=== PATIENT | male | born 1970 | race Caucasian/White ===

== ENCOUNTER 2021-09-22 08:38 | Outpatient (REF) | payer OTHER, SELFPAY ==
[2021-09-22 08:55] LABS: MANUAL DIFF FLAG NO
[2021-09-22 09:52] LABS: Basophils Percent Auto 0.8 % (0-2); Eosinophils Absolute Auto 0.1 X10*3/uL (0.0-0.4); Eosinophils Percent Auto 2.7 % (0-4); Hematocrit 48.5 % (42.0-52.0); Hemoglobin 15.3 g/dl (14.0-18.0); Imm Gran Abs Auto 0.01 X10*3/uL (0.00-0.03); Imm Gran Pct Auto 0.2 % (0.0-0.4); Lymphocytes Absolute Auto 1.8 X10*3/uL (1.2-4.9); Lymphocytes Percent Auto 37.1 % (20-40); Mean Corpuscular HGB Conc 31.5 g/dl (31.0-36.0); Mean Corpuscular Hemoglobin 24.7 pg (27.0-33.0); Mean Corpuscular Volume 78.2 fL (80.0-98.0); Mean Platelet Volume 10.8 fL (9.4-12.4); Monocytes Absolute Auto 0.4 X10*3/uL (0.1-1.2); Monocytes Percent Auto 9.1 % (2-11); Neutrophils Absolute Auto 2.4 x10*3/uL (2.0-8.3); Neutrophils Percent Auto 50.1 % (45-73); Platelet Count 235 X10*3/uL (160-400); Red Cell Distribution Width 19.3 % (11.0-16.0); White Blood Count 4.8 X10*3/uL (4.8-10.8)
[2021-09-22 10:06] LABS: Alanine Aminotransferase 36 U/L (0-40); Albumin Level 4.1 g/dL (3.5-5.0); Alkaline Phosphatase 97 U/L (39-117); Anion Gap 12 (12-20); Aspartate Amino Transferase 27 U/L (5-37); Bilirubin Total 0.5 mg/dL (0.0-1.0); Blood Urea Nitrogen 19 mg/dL (9-16); Calcium 9.6 mg/dL (8.4-10.2); Carbon Dioxide 26 mmol/L (22-29); Chloride 105 mmol/L (96-108); Cholesterol 270 mg/dL; Estimated Glomerular Filt Rate > 60; Glucose Fasting 110 mg/dL (60-99); HDL Cholesterol 44 mg/dL; LDL Cholesterol Calculated 182 mg/dl; Potassium 4.4 mmol/L (3.3-5.1); Sodium 139 mmol/L (135-145); Total Protein 7.3 g/dL (6.5-8.0); Triglycerides 222 mg/dL
[2021-09-22 10:29] LABS: Thyroid Stimulating Hormone 1.13 uIU/mL (0.32-4.0)
[2021-09-27 16:05] LABS: Testosterone, Free 85.2 pg/mL (35.0-155.0); Testosterone, Total 300 ng/dL (250-1100)
== END 2021-09-22 08:39 | disposition home or self-care (01) ==
LOC: HO.LAB 08:38
PROVIDERS: PCP Internal Medicine; Visit Provider Internal Medicine
DX: E66.9 Obesity, unspecified (principal); Z68.34 Body mass index [BMI] 34.0-34.9, adult; E34.9 Endocrine disorder, unspecified
CPT/HCPCS: 36415; 80053; 80061; 84402; 84403; 84443; 85025

== ENCOUNTER 2021-12-23 09:00 | Outpatient (REF) | payer OTHER, SELFPAY ==
--- NOTE | ~2021-12-23 | XR_ITS ---
EXAMINATION: XR SHOULDER, RIGHT XR ELBOW, RIGHT CLINICAL INFORMATION: Right shoulder pain. Right elbow pain. COMPARISON: None TECHNIQUE: 4 views of the right shoulder. 3 views of the right elbow. FINDINGS: RIGHT SHOULDER: Mild glenohumeral osteoarthritis with inferior osteophytes. Moderate acromioclavicular osteoarthritis. Normal alignment with no fracture. RIGHT ELBOW: Normal alignment with no fracture. No joint effusion. There is a small osteophyte of the radial head anterolaterally. Posterior olecranon enthesophyte. XR/XR shoulder RT min 2V IMPRESSION: Right shoulder: No fracture. Moderate acromioclavicular and mild glenohumeral osteoarthritis. Right elbow: Mild degenerative changes. Prominent enthesophyte of the olecranon at the triceps tendon insertion. No acute abnormality.
--- NOTE | ~2021-12-23 | XR_ITS ---
EXAMINATION: XR SHOULDER, RIGHT XR ELBOW, RIGHT CLINICAL INFORMATION: Right shoulder pain. Right elbow pain. COMPARISON: None TECHNIQUE: 4 views of the right shoulder. 3 views of the right elbow. FINDINGS: RIGHT SHOULDER: Mild glenohumeral osteoarthritis with inferior osteophytes. Moderate acromioclavicular osteoarthritis. Normal alignment with no fracture. RIGHT ELBOW: Normal alignment with no fracture. No joint effusion. There is a small osteophyte of the radial head anterolaterally. Posterior olecranon enthesophyte. XR/XR elbow RT min 3V IMPRESSION: Right shoulder: No fracture. Moderate acromioclavicular and mild glenohumeral osteoarthritis. Right elbow: Mild degenerative changes. Prominent enthesophyte of the olecranon at the triceps tendon insertion. No acute abnormality.
== END 2021-12-23 09:01 | disposition home or self-care (01) ==
LOC: HO.XRAY 09:00
PROVIDERS: PCP Internal Medicine; Visit Provider Nurse Practitioner Family
DX: M25.511 Pain in right shoulder (principal); M25.521 Pain in right elbow
CPT/HCPCS: 73030; 73080

== ENCOUNTER → 2022-01-21 10:49 | Outpatient (BNVA) | payer OTHER, SELFPAY | PROVIDERS: PCP Internal Medicine; Visit Provider Orthopaedic Surgery | DX: M67.911 Unspecified disorder of synovium and tendon, right shoulder (principal) | CPT/HCPCS: 99202 ==

== ENCOUNTER 2022-02-02 07:23 | Outpatient (REF) | payer OTHER, SELFPAY ==
--- NOTE | ~2022-02-02 | MR_ITS ---
EXAMINATION: MR SHOULDER WITHOUT CONTRAST, RIGHT CLINICAL INFORMATION: Right shoulder pain. COMPARISON: None TECHNIQUE: MRI of the shoulder without contrast was performed on a high-field scanner. FINDINGS: ROTATOR CUFF: Supraspinatus: There is a full-thickness insertional tear involving the anterior supraspinatus tendon. There is tendon retraction resulting in a tendon defect measuring 15 mm transverse and 14 mm AP. There is some additional heterogeneity of the remaining portion of tendon compatible tendinosis and perhaps additional small scattered areas of partial tearing but no additional measurable defect. Infraspinatus: Some cystic change along the myotendinous junction anteriorly likely sequela of some minimal interstitial partial tearing but no measurable defect. Muscle is normal. Teres Minor: There is diffuse severe atrophy and fatty infiltration of the superior half of the muscle. Tendon intact. Subscapularis: Abnormal signal and some irregularity of the distal 2 cm of the tendon in the superior half of the tendon. This likely reflects a high-grade partial tearing or irregular full-thickness tear. Favor irregular full-thickness tear. There is no atrophy of fatty infiltration of the muscle. BICEPS: There is medial subluxation of the biceps as it extends into the bicipital groove distally. It passes over the lesser tuberosity as it extends distally. This may be in part related to the aforementioned subscapularis tear and perhaps an accompanying injury to the woodrow. CORACOACROMIAL ARCH: The undersurface of the acromion is curved with no subacromial spur. There is severe hypertrophic osteoarthritis of acromioclavicular joint with associated subchondral cystic change and marginal osteophytes. BURSA: Subacromial subdeltoid bursa trace fluid. LABRUM/CAPSULE: Normal. GLENOHUMERAL JOINT/MARROW: Normal. MR/MR shoulder RT wo con IMPRESSION: Small full-thickness tear involving the anterior supraspinatus tendon. Insertional tear of the subscapularis tendon likely high-grade partial-thickness versus irregular full-thickness. Medial subluxation of the biceps likely in part related to the subscapularis tear and perhaps an accompanying biceps woodrow injury. Severe osteoarthritis of the acromioclavicular joint.
== END 2022-02-02 07:24 | disposition home or self-care (01) ==
LOC: HO.MRI 07:23
PROVIDERS: Visit Provider Orthopaedic Surgery
DX: M67.911 Unspecified disorder of synovium and tendon, right shoulder (principal)
CPT/HCPCS: 73221

== ENCOUNTER → 2022-02-14 08:24 | Outpatient (BNVA) | payer OTHER, SELFPAY | PROVIDERS: PCP Internal Medicine; Visit Provider Orthopaedic Surgery | DX: M75.101 Unspecified rotator cuff tear or rupture of right shoulder, not specified as traumatic (principal) | CPT/HCPCS: 99212 ==

== ENCOUNTER 2022-03-02 09:06 | Day surgery (SDC) | payer OTHER, SELFPAY ==
[2022-02-24 12:12] VITALS: BMI 35.1
[2022-03-02] VITALS (9 sets, daily range): BP systolic 100–162; BP diastolic 52–103; PULSE 62–80; RESP 16–20; TEMP 36.4–36.5; O2SAT 94–97; BMI 34.3
--- NOTE | 2022-03-02 10:21 | HO.ANESPROP2 ---
[facility] Active Problems Active Problems: All Active Problems (Updated 03/02/22 @ 09:22 by Anna Briscoe RN) Right elbow pain (Acute) Right shoulder pain (Acute) Dysfunction of right rotator cuff (Acute) Right rotator cuff tear (Acute) Erectile dysfunction (Acute) Testosterone deficiency (Acute) Colon polyps (Acute) EDISON (generalized anxiety disorder) (Acute) Mild recurrent major depression (Acute) Class 1 obesity with body mass index (BMI) of 34.0 to 34.9 in adult (Acute) Past Medical History Medical History (Updated 03/02/22 @ 09:22 by Anna Briscoe RN) Class 1 obesity with body mass index (BMI) of 34.0 to 34.9 in adult Colon polyps Erectile dysfunction EDISON (generalized anxiety disorder) Mild recurrent major depression Obstructive sleep apnea Testosterone deficiency Family History Family History Mother Alzheimer disease Father No problems noted. Brother Liver cancer Substance use disorder Family history of problems with anesthesia: No Surgical History Surgical History History of back surgery History of elbow surgery History of Problems with Anesthesia: No Social History Social History Housing: House Alcohol intake: former Patient Tobacco Use Status: Never used Tobacco e-Cigarette/Vaping Use: Never Used Second Hand Smoke Exposure: No Use of substances other than those prescribed or required for medical reasons: No Are you DNR?: No Advance Directives: No Advance Directives Information Provided: Yes service: No Current occupational status: employed 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 Current occupational exposures/hazards: No Cognitive needs: No Hearing needs: No Vision needs: No Meds Allergies Allergy/AdvReac Type Severity Reaction Status Date / Time No Known Allergies Allergy Verified 12/23/21 08:44 Exam Exam Date and Time: March 02, 2022 1021 Height,Weight and Vital Signs: Height 5 ft 6 in Weight 96.615 kg Last Vital Signs Temp 97.7 F 03/02/22 09:33 Pulse 80 03/02/22 09:33 Resp 18 03/02/22 09:33 BP 162/103 H 03/02/22 09:33 Pulse Ox 97 03/02/22 09:33 O2 Del Method 03/02/22 09:33 Airway Mallampati Class: III TM Dist: >3cm Neck ROM: Full Assessment and Plan Assessment Anesthesia Assessment: Anesthesia Plan Discussed and Chart Reviewed Final Anesthetic Review Family History of Problems with Anesthesia: No History of Problems with Anesthesia: No NPO: Yes ASA Class: II Final Preanesthetic Review: No Changes in Pt Med Stat, Meds/Allgs Chart Reviewed, Consent Obtained/Reviewed and Anes Risks/Benef Reviewed Patient Risk: Intermediate Procedure Risk: Intermediate Anesthetic Plan Anesthetic Plan: GA and Regional Block Disposition: Standard PACU
[2022-03-02] MEDS: Lactated Ringers 1,000 ML 50 ML IVCONT (11:39)
--- NOTE | 2022-03-02 20:10 | PM.OP ---
Brief Operative Note Date of Service: 03/02/22 Pre-op diagnosis: right rtc tear Post-op diagnosis: other (right subscapoularis tear and rtight biceps tear and right supraspinatus tear) Procedure: rtc repai subscapularis repair biceps tenotomy Implants: Freeman and nephew heloacoil x 6 Surgeon: Jerson Rodriguez MD Was an Steward/Stewardess Wine used for this Procedure?: Yes Steward/Stewardess Wine: Marita Chambers Estimated blood loss (mL): 5 IV fluids (mL): 800 Pathology: none sent Condition: stable Disposition: PACU
--- NOTE | 2022-03-03 17:48 | W.PM.OPN ---
Operative Note Operative Note Date of Service: 03/02/22 Narrative: Date of Service: 03/02/22 Pre-op diagnosis: right rtc tear Post-op diagnosis: other (right subscapoularis tear and rtight biceps tear and right supraspinatus tear) Procedure: rtc repai subscapularis repair biceps tenotomy Implants: Ballard and nephew heloacoil x 6 Surgeon: Jerson Rdoriguez MD Was an Metal Furniture Assembly Supervisor used for this Procedure?: Yes Metal Furniture Assembly Supervisor: Marita Chambers Estimated blood loss (mL): 5 IV fluids (mL): 800 Pathology: none sent Condition: stable Disposition: PACU Procedure in detail: Patient was brought to the operating room and placed the the beach chair position. All bony prominences were well padded and the limb was prepped and draped in standard sterile fashion. A time out was called to identify proper site, proper procedure and proper surgeon. IV antibiotics per weight were administered. I began by making a posterolateral stab incision with a 15 blade. A blunt trochar was placed into the glenohumeral joint and I insufflated the joint with saline and a 30 degree arthroscope was placed. I established an outside- in anterior portal just distal to the biceps tendon. I then began my inspection of the glenohumeral joint. The articular surfaces were normal. There was a SLAP tear with extension into the biceps distally and a high grade partial subscapularis tear as well as a full thickness rtc tear. I tagged and cut the biceps and debrided the superior labrum. I then release the subscapularis. It was mobile but diminutive. I repaired this with 2 looped sutures. A 5.0 helacoil ( Ballard and Nephew) was used for the repair. The bed was debrided to bleeding bone befroe insertion. The biceps was then tenodesed in the bicipital groove lateral to the subscapularis, again with a Helacoil suture anchor.. Once satisfied with the repair I then removed the trochar and entered the subacromial space. A direct lateral portal was then established and I performed a bursectomy. The cuff was then examined. There was a complete tear of the supraspinatus I used two double loaded Helacoil anchors medially and brought the suture tape through the cuff and secured these to two lateral row anchors. An additional 2 looped sututre were used to optimize my repair. Again the bone bed was debrided down to bleeding bone. I had excellent compression of the tear and reprodcution of the normal antomy. Once I was satisfied with the repair final images were captured and I removed all instrumentation. Portals were closed with nylon. Patient was placed in an abduction sling, extubated and brought to the recovery room in stable condition. There were no known complications.
== END 2022-03-02 17:00 | disposition home or self-care (01) ==
LOC: HO.SSS 09:07
PROVIDERS: PCP Internal Medicine; Visit Provider Orthopaedic Surgery
PROC: (CPT 29827; principal; 2022-03-02 12:10)
DX: M75.101 Unspecified rotator cuff tear or rupture of right shoulder, not specified as traumatic (principal); Z98.890 Other specified postprocedural states
CPT/HCPCS: 29827; 29826; C1713; J0690; J1885; J2250; J2795; J3010

== ENCOUNTER 2022-04-12 14:00 | Outpatient (RCR) | payer OTHER, SELFPAY ==
--- NOTE | 2022-03-18 15:09 | MHC.PT.EP ---
[facility] [place] [facility] [place] [facility] [place] [facility] [address] [place] [address] [phone] F: [phone] F: [phone] F: [phone] F: [phone] Physical Therapy Plan of Care Date of Evaluation: Date of Surgery: 03/02/22 Diagnosis: S/P RTC REPAIR (SUPRASPINATUS, SUBSCAP), BICEPS TENDONITIS Assessment: PEG IS A PLEASANT 51 YO MALE WHO UNDERWENT RIGHT RTC REPAIR (SUBSCAP AND SUPRASP W/ BICEPS TENDODESIS) 03/02/22. UPON EXAM HE DEMONSTRATES THE EXPECTED IMPAIRMENTS OF DECREASED ROM, DECREASED STRENGTH, ALTERED POSTURE AND POSITIONING, INCREASED UPPER TRAP GUARDING, AND INCREASED PAIN AND EDEMA. FUNCTIONAL LIMITATIONS INCLUDE DECREASED ABILITY TO PERFORM HOMEMAKING AND SELF-CARE TASKS, DECREASED ABILITY TO PERFORM PUSHING, PULLING, LIFTING AND REACHING. INABILITY TO DRIVE AND PERFORM WORK TASKS, DECREASED PARTICIPATION IN COMMUNITY AND RECREATIONAL ACTIVITIES AND DISRUPTED SLEEP. THE PT IS A GOOD CANDIDATE FOR SKILLED PT DUE TO AGE, POTENTIAL REMEDIATION OF IMPAIRMENTS, TYPICAL DISEASE/CONDITION PROGRESSION AND PROGNOSIS, COMORBIDITIES, AND MOTIVATION. PT WOULD BENEFIT FROM TAILORED PROGRAM OF THERAPEUTIC ACTIVITIES, FUNCTIONAL TRAINING, GAIT TRAINING, POSTURAL EDUCATION, NEUROMUSCULAR RE-EDUCATION, AND MODALITIES NEEDED. 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 Manual therapy to restore motion and function. Therapeutic exercise to improve strength and flexibility. Neuromuscular re-education for posture and balance. Therapeutic activities to return to functional activities of daily living. Electronically signed by: HAVEN PIMENTEL PT, DPT Please sign and return to therapist. Thank you for your referral.
--- NOTE | 2022-05-31 09:47 | MHC.PT.DC ---
[facility] [place] [facility] [place] [facility] [place] [facility] [address] [place] [address] [phone] F: [phone] F: [phone] F: [phone] F: [phone] Physical Therapy Discharge Report Diagnosis: S/P RTC REPAIR (SUPRASPINATUS, SUBSCAP), BICEPS TENDONITIS Date of Surgery: 03/02/22 Date of Evaluation: 03/18/22 Date of Discharge: 05/31/22 Treatments to Date: 5 Cancellations to Date: 5 No Shows to Date: 0 Discharge Status: Patient Elected to Stop Visit Non-compliance Discharge Summary: Cancelled multiple visits, has not returned calls from our office to reschedule. Electronically signed by: Breonna Mullins PT DPT Please sign and return to therapist. Thank you for your referral.
== END 2022-05-31 09:47 | disposition home or self-care (01) ==
LOC: HO.PT 14:00
PROVIDERS: PCP Internal Medicine; Visit Provider Physician Assistant
DX: M75.101 Unspecified rotator cuff tear or rupture of right shoulder, not specified as traumatic (principal)
CPT/HCPCS: 97110; 97140; 97161

== ENCOUNTER 2022-05-01 00:44 | Emergency (ER) | payer OTHER, SELFPAY ==
--- NOTE | ~2022-05-01 | CT_ITS ---
EXAMINATION CT CHEST, ABDOMEN AND PELVIS WITHOUT CONTRAST CLINICAL INFORMATION: Fall downstairs. Right chest and abdominal pain. COMPARISON: None. TECHNIQUE: Multidetector volumetric CT imaging of the chest, abdomen and pelvis was obtained without use of intravenous contrast. Coronal and sagittal reformats were reviewed. This CT examination was performed using dose optimization techniques as appropriate, variously including the following: *Automated exposure control *Adjustment of mA and/or kV according to patient size (this includes techniques or standardized protocols for targeted exams where dose is matched to indication/reason for exam; i.e. extremities or head) *Use of iterative reconstruction technique DLP: 1346 mGy-cm. FINDINGS: CHEST LUNGS/PLEURA: The lungs are clear with no evidence of inflammation or nodules. There is no pleural effusion. No pleural mass or thickening. MEDIASTINUM/LISSETTE: Normal heart size. No pericardial effusion. Great vessels normal caliber. CHEST WALL/AXILLA: Unremarkable. ABDOMEN/PELVIS HEPATOBILIARY: Liver normal in size, contour and morphology. Hepatic steatosis. No suspicious lesions. No intra or extrahepatic biliary dilation. Gallbladder unremarkable. PANCREAS: Unremarkable. SPLEEN: Unremarkable. ADRENAL GLANDS: Unremarkable. KIDNEYS, URETERS AND BLADDER: Kidneys normal in size, axis and morphology demonstrating symmetric enhancement. No hydronephrosis or urinary calculi. Ureters normal in course and caliber. Bladder grossly unremarkable.. GASTROINTESTINAL TRACT: Scattered colonic diverticula. No evidence of diverticulitis. Normal stomach and small bowel. PELVIC VISCERA: Unremarkable. LYMPH NODES: No lymphadenopathy. PERITONEUM/BODY WALL: Unremarkable. VASCULAR STRUCTURES: Unremarkable. OSSEOUS STRUCTURES No acute or suspicious osseous abnormalities. Suture anchors present within the right humeral head. CT/CT abdomen pelvis wo IV con IMPRESSION: * No evidence of acute traumatic injury within the chest, abdomen or pelvis. * No fractures are * Hepatic steatosis.
--- NOTE | ~2022-05-01 | XR_ITS ---
EXAMINATION: XR SHOULDER, RIGHT CLINICAL INFORMATION: Trauma. Pain. COMPARISON: 12/23/2021 TECHNIQUE: Three views of the right shoulder. FINDINGS: No acute fracture or dislocation. Moderate degenerative changes of the acromioclavicular joint. Small marginal osteophytes of the glenohumeral joint. Suture anchors present in the humeral head. Soft tissues unremarkable. XR/XR shoulder RT min 2V IMPRESSION: No acute fracture or dislocation.
--- NOTE | ~2022-05-01 | XR_ITS ---
EXAMINATION: XR FINGER, LEFT CLINICAL INFORMATION: Fifth digit pain status post trauma. COMPARISON: Left finger radiographs from earlier today. TECHNIQUE: 3 views of the left hand fifth digit. An indicator arrow points to the proximal interphalangeal joint of the fifth digit. FINDINGS: There is a questionable tiny fragment off of the dorsal base of the distal phalanx of the fifth digit projecting over the distal interphalangeal joint space. The proximal interphalangeal joint space is unremarkable. Chronic avulsion fracture of the radial base of the proximal phalanx is again seen. The fifth metacarpal is intact. The remainder the digits are intact. The soft tissues are unremarkable. XR/XR finger LT min 2V IMPRESSION: 1. No definitive abnormality at the proximal interphalangeal joint of the fifth digit. Questionable tiny osseous density dorsally at the distal interphalangeal joint. This could be projectional however, a tiny avulsion type fracture cannot be completely excluded. This does not correlate with the indicated region of pain. Correlate with physical exam.
--- NOTE | ~2022-05-01 | XR_ITS ---
EXAMINATION: XR FINGER, LEFT CLINICAL INFORMATION: Trauma. Pain. COMPARISON: None TECHNIQUE: PA view of the hand and oblique and lateral views of the fifth digit FINDINGS: No acute fracture or dislocation. There is flexion of the fifth proximal interphalangeal joint. No radiopaque foreign body. Chronic avulsion fracture involving the radial base of the fifth proximal phalanx at the metacarpophalangeal joint. Mild degenerative changes of the first CMC and first metacarpal phalangeal joints. XR/XR finger LT min 2V IMPRESSION: No fractures. Flexion of the fifth proximal interphalangeal joint abiding by the patient's anatomy.
[2022-05-01 00:56] VITALS: BP 171/88; PULSE 63; RESP 20; TEMP 36.6; O2SAT 96; BMI 33.5
[2022-05-01 03:22] VITALS: BP 162/102; PULSE 73; RESP 20; TEMP 36.7; O2SAT 98
[2022-05-01] MEDS: Morphine Sulfate 4 MG/ML CARTRIDGE IVPUSH (04:50)
[2022-05-01 05:03] LABS: MANUAL DIFF FLAG NO
[2022-05-01 05:04] LABS: Basophils Absolute Auto 0.1 X10*3/uL (0.0-0.2); Eosinophils Absolute Auto 0.1 X10*3/uL (0.0-0.4); Eosinophils Percent Auto 1.6 % (0-4); Hematocrit 42.1 % (42.0-52.0); Hemoglobin 14.4 g/dl (14.0-18.0); Imm Gran Abs Auto 0.01 X10*3/uL (0.00-0.03); Imm Gran Pct Auto 0.2 % (0.0-0.4); Lymphocytes Percent Auto 40.8 % (20-40); Mean Corpuscular HGB Conc 34.2 g/dl (31.0-36.0); Mean Corpuscular Hemoglobin 27.3 pg (27.0-33.0); Mean Corpuscular Volume 79.7 fL (80.0-98.0); Mean Platelet Volume 10.7 fL (9.4-12.4); Monocytes Absolute Auto 0.5 X10*3/uL (0.1-1.2); Monocytes Percent Auto 9.2 % (2-11); Neutrophils Absolute Auto 2.3 x10*3/uL (2.0-8.3); Neutrophils Percent Auto 47.2 % (45-73); Platelet Count 177 X10*3/uL (160-400); Red Blood Count 5.28 X10*6/uL (4.60-5.80); Red Cell Distribution Width 19.7 % (11.0-16.0); White Blood Count 4.9 X10*3/uL (4.8-10.8)
[2022-05-01 05:09] LABS: INTERNATIONAL NORM RATIO 0.9 (0.9-1.1); Prothrombin Time 10.5 SEC (10.0-13.1)
[2022-05-01 05:11] LABS: Partial Thromboplastin Time 30.5 SEC (26.0-36.4)
[2022-05-01 05:19] LABS: Alanine Aminotransferase 31 U/L (0-40); Albumin Level 4.1 g/dL (3.5-5.0); Alkaline Phosphatase 105 U/L (39-117); Anion Gap 15 (12-20); Aspartate Amino Transferase 22 U/L (5-37); Bilirubin Total 0.4 mg/dL (0.0-1.0); Blood Urea Nitrogen 17 mg/dL (9-16); COVID-19 Test Negative (Negative); Calcium 8.9 mg/dL (8.4-10.2); Carbon Dioxide 22 mmol/L (22-29); Chloride 107 mmol/L (96-108); Creatinine Clr Calc Pharmacy 98.9; Estimated Glomerular Filt Rate > 60; Glucose Random 140 mg/dL (60-115); Lipase 24 U/L (8-78); Potassium 4.2 mmol/L (3.3-5.1); Sodium 140 mmol/L (135-145); Total Protein 7.2 g/dL (6.5-8.0)
[2022-05-01 05:58] VITALS: BP 144/89; PULSE 65; RESP 16; TEMP 36.6; O2SAT 98
--- NOTE | 2022-05-01 06:42 | ED_ITS ---
HPI - Fall General Chief Complaint: Fall Stated Complaint: fall Time Seen by Provider: 05/01/22 04:23 Source: patient and old records reviewed Mode of arrival: EMS Limitations: no limitations History of Present Illness HPI Narrative: 51 yo male fall down 9 stairs mechanical injury only to L tereza finger not on blood thinners no head injury - denies any head or trunk trauma MD complaint: fall Onset (ago): hour(s) (prior to arrival has been waiting for several hours) Fall from: standing Fall witnessed: yes, by family Place fall occurred: home Loss of consciousness: none Symptoms prior to fall: none Context: tripped/slipped Location of injury - extremities: left: hand (tereza finger - was going sideways when he stood up) Severity: moderate Quality: throbbing Associated symptoms (after fall): other (cannot extend finger - did push it back) Related Data Previous Rx's Medication Instructions Recorded oxycodone-acetaminophen 5 mg-325 1 tab PO ONCE PRN pain (scale 04/12/22 mg tablet (Percocet) score 4-6) 7 days #7 tabs hydrocodone 5 mg-acetaminophen 325 1 tab PO Q6H PRN pain #10 tabs 05/01/22 mg tablet Allergies Allergy/AdvReac Type Severity Reaction Status Date / Time No Known Allergies Allergy Verified 05/01/22 01:00 Review of Systems Review of Systems: Constitutional : No Fever, No Chills ENT/Mouth : No Ear Pain, No Hoarseness, No sore throat Eyes: No Eye Pain, No Swelling, No Redness, No Foreign Body Cardiovascular : No Chest Pain, No SOB Respiratory : No Cough, No Dyspnea Gastrointestinal : No Nausea, No Vomiting, No Diarrhea, No abdominal Pain Genitourinary : No Dysuria, No Hematuria Musculoskeletal : positive joint pain, No Myalgias, No Joint Swelling Skin : No Skin lacerations, No rash Neuro : No Weakness, No Numbness, No Loss of Consciousness, No Dizziness, No Headache Psych : No Anxiety/Panic, No Depression Heme/Lymph: no easy bruising, no Lymphadenopathy Endocrine : No Polyuria, No Polydipsia All other systems reviewed and are negative PMFSH Past Medical History Attestation statement: The following information was validated with the patient. Medical History Class 1 obesity with body mass index (BMI) of 34.0 to 34.9 in adult Colon polyps Erectile dysfunction EDISON (generalized anxiety disorder) Mild recurrent major depression Obstructive sleep apnea Testosterone deficiency Surgical History History of back surgery History of elbow surgery History of repair of rotator cuff Family History Family History Mother Alzheimer disease Father No problems noted. 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 Oriented X3. No acute distress. Eyes: Pupils equal, round and reactive to light. ENT: Pharynx normal. atraumatic Neck: Normal inspection. Neck supple. no midline ttp CVS: Normal heart rate and rhythm. Pulses normal. Respiratory: No respiratory distress. Breath sounds normal. Abdomen: Soft and non-tender. Skin: Skin warm and dry. Normal skin color. Extremities: No lower extremity edema. L pinkie finger inability to extend finger swelling and ttp at PIP joint distal NV intact Neuro: Oriented X 3. No motor deficit. No sensory deficit. Procedures Orthopedic Splinting/Casting Injury #1: Side: left Upper Extremity Injury Location: finger Upper Extremity Immobilizer: finger (other) (with hyperextension) MDM - Fall MDM Narrative Medical decision making narrative: 51 yo male with hx of recent rotator cuff surgery fall down 9 stairs mechanical no neck pain/trunk injury/head strike no blood thinners main complaint is that he tried to grab on and left pinkie finger when he stood up was going sideways he tried to push it back - xrays negative at this time suspect ligament or tendon injury, labs and CT scans negative from my prior evaluation. Placed in splint follow up with orthopedics Lab Data Result diagrams: 05/01/22 04:57 05/01/22 04:57 Labs: Lab Results 05/01/22 05/01/22 05/01/22 Range/Units 04:57 04:57 04:57 WBC 4.9 (4.8-10.8) X10*3/uL RBC 5.28 (4.60-5.80) X10*6/uL Hgb 14.4 (14.0-18.0) g/dl Hct 42.1 (42.0-52.0) % MCV 79.7 L (80.0-98.0) fL MCH 27.3 (27.0-33.0) pg MCHC 34.2 (31.0-36.0) g/dl RDW 19.7 H (11.0-16.0) % Plt Count 177 (160-400) X10*3/uL MPV 10.7 (9.4-12.4) fL Immature Gran % (Auto) 0.2 (0.0-0.4) % Neut % (Auto) 47.2 (45-73) % Lymph % (Auto) 40.8 H (20-40) % [place] % (Auto) 9.2 (2-11) % Eos % (Auto) 1.6 (0-4) % Baso % (Auto) 1.0 (0-2) % Lymph # (Auto) 2.0 (1.2-4.9) X10*3/uL [place] # (Auto) 0.5 (0.1-1.2) X10*3/uL Eos # (Auto) 0.1 (0.0-0.4) X10*3/uL Baso # (Auto) 0.1 (0.0-0.2) X10*3/uL Abs Immat Gran (auto) 0.01 (0.00-0.03) X10*3/uL Absolute Neuts (auto) 2.3 (2.0-8.3) x10*3/uL Absolute Nucleated RBC 0.000 (0.0-0.012) X10*3/uL Nucleated RBC % (auto) 0.0 (0.0-0.2) /100WBC PT 10.5 (10.0-13.1) SEC INR 0.9 (0.9-1.1) APTT 30.5 (26.0-36.4) SEC Sodium 140 (135-145) mmol/L Potassium 4.2 (3.3-5.1) mmol/L Chloride 107 (96-108) mmol/L Carbon Dioxide 22 (22-29) mmol/L Anion Gap 15 (12-20) BUN 17 H (9-16) mg/dL Creatinine 0.98 (0.5-1.4) mg/dL Estim Creat Clear Calc 98.9 Estimated GFR > 60 Random Glucose 140 H (60-115) mg/dL Calcium 8.9 D (8.4-10.2) mg/dL Total Bilirubin 0.4 (0.0-1.0) mg/dL AST 22 (5-37) U/L ALT 31 (0-40) U/L Alkaline Phosphatase 105 (39-117) U/L Total Creatine Kinase 301 H (38-174) U/L Total Protein 7.2 (6.5-8.0) g/dL Albumin 4.1 (3.5-5.0) g/dL Lipase 24 (8-78) U/L COVID-19 (ADITI) (Negative) COVID-19 Clin Com 05/01/22 Range/Units 04:57 WBC (4.8-10.8) X10*3/uL RBC (4.60-5.80) X10*6/uL Hgb (14.0-18.0) g/dl Hct (42.0-52.0) % MCV (80.0-98.0) fL MCH (27.0-33.0) pg MCHC (31.0-36.0) g/dl RDW (11.0-16.0) % Plt Count (160-400) X10*3/uL MPV (9.4-12.4) fL Immature Gran % (Auto) (0.0-0.4) % Neut % (Auto) (45-73) % Lymph % (Auto) (20-40) % [place] % (Auto) (2-11) % Eos % (Auto) (0-4) % Baso % (Auto) (0-2) % Lymph # (Auto) (1.2-4.9) X10*3/uL [place] # (Auto) (0.1-1.2) X10*3/uL Eos # (Auto) (0.0-0.4) X10*3/uL Baso # (Auto) (0.0-0.2) X10*3/uL Abs Immat Gran (auto) (0.00-0.03) X10*3/uL Absolute Neuts (auto) (2.0-8.3) x10*3/uL Absolute Nucleated RBC (0.0-0.012) X10*3/uL Nucleated RBC % (auto) (0.0-0.2) /100WBC PT (10.0-13.1) SEC INR (0.9-1.1) APTT (26.0-36.4) SEC Sodium (135-145) mmol/L Potassium (3.3-5.1) mmol/L Chloride (96-108) mmol/L Carbon Dioxide (22-29) mmol/L Anion Gap (12-20) BUN (9-16) mg/dL Creatinine (0.5-1.4) mg/dL Estim Creat Clear Calc Estimated GFR Random Glucose (60-115) mg/dL Calcium (8.4-10.2) mg/dL Total Bilirubin (0.0-1.0) mg/dL AST (5-37) U/L ALT (0-40) U/L Alkaline Phosphatase (39-117) U/L Total Creatine Kinase (38-174) U/L Total Protein (6.5-8.0) g/dL Albumin (3.5-5.0) g/dL Lipase (8-78) U/L COVID-19 (ADITI) Negative (Negative) COVID-19 Clin Com See Note Discharge Plan Discharge Clinical Impression: Injury of extensor tendon of left hand Qualifiers: Encounter type: initial encounter Qualified Code(s): S66.902A - Unspecified injury of unspecified muscle, fascia and tendon at wrist and hand level, left hand, initial encounter Fall Qualifiers: Encounter type: initial encounter Qualified Code(s): W19.XXXA - Unspecified fall, initial encounter Patient Disposition: Home, Self-Care Instructions: Finger Sprain (ED), Fall Prevention (ED) Additional Instructions: return to ED for any worsening symptoms or concerns wear splint until released suspect reduced dislocation at home vs tendon injury follow up with Dr. Cohen call for appointment labs and CT scans negative at this time There is a questionable tiny fragment off of the dorsal base of the distal phalanx of the fifth digit projecting over the distal interphalangeal joint space. The proximal interphalangeal joint space is unremarkable. Chronic avulsion fracture of the radial base of the proximal phalanx is again seen. The fifth metacarpal is intact. The remainder the digits are intact. The soft tissues are unremarkable. XR/XR finger LT min 2V IMPRESSION: ? 1. No definitive abnormality at the proximal interphalangeal joint of the fifth digit. Questionable tiny osseous density dorsally at the distal interphalangeal joint. This could be projectional however, a tiny avulsion type fracture cannot be completely excluded. This does not correlate with the indicated region of pain. Correlate with physical exam. ? Prescriptions: New hydrocodone-acetaminophen 5-325 mg tablet 1 tab PO Q6H PRN (Reason: pain) Qty: 10 0RF Rx Instructions: partial fill okay; Partial Fill upon patient request. No Action oxycodone-acetaminophen [Percocet] 5-325 mg tablet 1 tab PO ONCE PRN (Reason: pain (scale score 4-6)) 7 Days Qty: 7 0RF Rx Instructions: Partial Fill upon patient request. Referrals: Georgina Cohen MD [Physician] - (call this week for appointment) Stand Alone Forms: Work/School Release
[2022-05-01 07:33] VITALS: BP 131/89; PULSE 66; RESP 17; TEMP 36.6; O2SAT 95
[2022-05-01] MEDS: oxyCODONE HCl Immed Release 5 MG TABLET 10 MG PO (07:35)
== END 2022-05-01 08:28 | disposition home or self-care (01) ==
PROVIDERS: Emergency Medicine Emergency Medical Services; Emergency Provider Emergency Medicine
DX: S66.902A Unspecified injury of unspecified muscle, fascia and tendon at wrist and hand level, left hand, initial encounter (principal); M54.6 Pain in thoracic spine; R10.9 Unspecified abdominal pain; M25.511 Pain in right shoulder; W10.9XXA Fall (on) (from) unspecified stairs and steps, initial encounter; Y93.9 Activity, unspecified; Y92.9 Unspecified place or not applicable; Y99.9 Unspecified external cause status; Z79.899 Other long term (current) drug therapy; Z20.822 Contact with and (suspected) exposure to COVID-19
CPT/HCPCS: 71250; 73030; 73140; 74176; 80053; 82550; 83690; 85025; 85610; 85730; 87635; 96374; 99284; J2270

== ENCOUNTER → 2022-05-11 11:14 | Outpatient (BNVA) | payer OTHER, SELFPAY | PROVIDERS: PCP Internal Medicine; Visit Provider Orthopaedic Surgery | DX: S56.418A Strain of extensor muscle, fascia and tendon of left little finger at forearm level, initial encounter (principal); M20.022 Boutonniere deformity of left finger(s) | CPT/HCPCS: 99202 ==

== ENCOUNTER 2022-05-16 07:28 | Day surgery (SDC) | payer OTHER, SELFPAY ==
--- NOTE | 2022-05-13 08:33 | HO.ANESPROP2 ---
Documented by User: Carlyn Bray NP 05/13/22 08:36 HPI - Anesthesia Eval Consult details Narrative: 51yo M for Left Extensor Tendon Repair small finger s/p rotator cuff repair 02/2022 with GA-ETT 7.5 PMFSH Active Problems Active Problems: All Active Problems (Updated 05/11/22 @ 13:17 by Georgina Cohen MD) Traumatic rupture of extensor tendon of finger (Acute) Central slip extensor tendon injury (boutonniere) (Acute) Physical exam (Acute) Right elbow pain (Acute) Right shoulder pain (Acute) Dysfunction of right rotator cuff (Acute) Right rotator cuff tear (Acute) Erectile dysfunction (Acute) Testosterone deficiency (Acute) Colon polyps (Acute) EDISON (generalized anxiety disorder) (Acute) Mild recurrent major depression (Acute) Class 1 obesity with body mass index (BMI) of 34.0 to 34.9 in adult (Acute) Past Medical History Medical History Class 1 obesity with body mass index (BMI) of 34.0 to 34.9 in adult Colon polyps Erectile dysfunction EDISON (generalized anxiety disorder) Mild recurrent major depression Obstructive sleep apnea Testosterone deficiency Family History Family History Mother Alzheimer disease Father No problems noted. Brother Liver cancer Substance use disorder Family history of problems with anesthesia: No Surgical History Surgical History History of back surgery History of elbow surgery History of repair of rotator cuff History of Problems with Anesthesia: No Social History Social History Housing: House Alcohol intake: never Patient Tobacco Use Status: Never used Tobacco e-Cigarette/Vaping Use: Never Used Second Hand Smoke Exposure: No Use of substances other than those prescribed or required for medical reasons: No Are you DNR?: No Advance Directives: No Advance Directives Information Provided: Yes service: No Current occupational status: unemployed 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 Current occupational exposures/hazards: No Cognitive needs: No Hearing needs: No Vision needs: No Meds Allergies Allergy/AdvReac Type Severity Reaction Status Date / Time No Known Allergies Allergy Verified 05/11/22 11:33 Home Medications Medication Instructions Recorded Confirmed Last Taken Type ibuprofen 600 mg tablet 600 mg PO Q8H PRN pain 05/11/22 Unknown History Exam Exam Date and Time: May 13, [id number] Pertinent Lab Results Pertinent Lab Results: Laboratory Tests 05/01/22 05/01/22 04:57 04:57 WBC 4.9 Hgb 14.4 Hct 42.1 Plt Count 177 Sodium 140 Potassium 4.2 Chloride 107 Carbon Dioxide 22 BUN 17 H Creatinine 0.98 Assessment and Plan Assessment Anesthesia Assessment: Chart Reviewed Final Anesthetic Review Family History of Problems with Anesthesia: No History of Problems with Anesthesia: No Documented by User: Deloris Rojas MD 05/16/22 09:17 [facility] Past Medical History Medical History Class 1 obesity with body mass index (BMI) of 34.0 to 34.9 in adult Colon polyps Erectile dysfunction EDISON (generalized anxiety disorder) Mild recurrent major depression Obstructive sleep apnea Testosterone deficiency Family History Family History Mother Alzheimer disease Father No problems noted. 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 Current occupational exposures/hazards: No Cognitive needs: No Hearing needs: No Vision needs: No Meds Allergies Allergy/AdvReac Type Severity Reaction Status Date / Time No Known Allergies Allergy Verified 05/11/22 11:33 Home Medications Medication Instructions Recorded Confirmed Last Taken Type ibuprofen 600 mg tablet 600 mg PO Q8H PRN pain 05/11/22 Unknown History Exam Airway Mallampati Class: III TM Dist: >3cm Neck ROM: Full Loose/Missing/Broken Teeth: No Heart: RRR Lungs: CTA Assessment and Plan Assessment Anesthesia Assessment: Anesthesia Plan Discussed Final Anesthetic Review NPO: Yes ASA Class: II Final Preanesthetic Review: Meds/Allgs Chart Reviewed, Consent Obtained/Reviewed and Anes Risks/Benef Reviewed Patient Risk: Low Procedure Risk: Low Anesthetic Plan Anesthetic Plan: GA Disposition: Standard PACU
[2022-05-16] VITALS (9 sets, daily range): BP systolic 128–152; BP diastolic 76–104; PULSE 79–90; RESP 16–19; TEMP 36.5–36.8; O2SAT 95–98; BMI 34.7
--- NOTE | ~2022-05-16 | FL_ITS ---
EXAMINATION: XR FLUOROSCOPY WITH IMAGES CLINICAL INFORMATION: Mini C-arm. COMPARISON: None. TECHNIQUE: Fluoroscopy performed by Georgina Cohen. Fluoroscopy time: 7.88 seconds. Cumulative Dose: 0.2081 mGy. DAP: 0.0126 Gy-cm2. Images: 2. FINDINGS: There is stabilization of PIP joint 5th digit with a solitary pin. No obvious fractures seen on these 2 images. The soft tissues are unremarkable. FL/FL guidance in OR IMPRESSION: Stabilized PIP joint 5th digit with a solitary pin through the joint space.
[2022-05-16] MEDS: Lactated Ringers 1,000 ML 100 ML IVCONT (08:25)
[2022-05-16] MEDS: Acetaminophen 325 MG TABLET 650 MG PO (11:45)
[2022-05-16] MEDS: oxyCODONE HCl Immed Release 5 MG TABLET PO (11:46)
--- NOTE | 2022-05-16 12:07 | MHC.SHP ---
Pre-Procedural Eval Section A Date of Service: 05/16/22 The patient is an INPATIENT: No Changes since office visit: No Cold of Flu in the past 2 weeks, No New Medical Problems, No Changes in Medication and No Patient answered all questions The History & Physical has been completed within 30 days and I have reviewed it.: Yes Section B Chief Complaint: Laceration of extensor muscle, fascia and tendon o Allergies: Allergies Allergy/AdvReac Type Severity Reaction Status Date / Time No Known Allergies Allergy Verified 05/11/22 11:33 Plan I have reviewed the history and physical and performed a pertinent physical examination on my patient. No changes have occurred unless specified.
--- NOTE | 2022-05-16 12:07 | W.PM.OPN ---
Operative Note Operative Note Date of Service: 05/16/22 Narrative: Operative Note Narrative: Preop diagnosis: 1. Left small finger central slip extensor tendon rupture Postop diagnosis: 1. Left small finger central slip extensor tendon rupture 2. Left small finger PIP joint radial collateral ligament tear Procedure: 1. Left small finger primary repair central slip extensor tendon 2. Left small finger PIP joint radial collateral ligament repair 3. Left ulnar nerve block Surgeon: Georgina Cohen MD Anesthesia: General Anesthesia Findings: 1. Left small finger central slip extensor tendon tear intertendinous 2. Left small finger PIP joint radial collateral ligament avulsion with tendon sitting superficial to the lateral band Implants: 0.045 K-wire x1 Tourniquet time: 30 minutes EBL: 5.0 ml Specimen: None Drains: None Complications: None Disposition: Brought to the recovery room in stable condition Plan: Follow-up in 10-14 days for wound check, suture removal and placement in a short-arm finger spica cast with the MCP at 90 degrees of flexion Anticipate removal of K-wire at 4-5 weeks postop Full PIP motion allowed at 6 weeks. Early hand therapy advised, to begin at 6 weeks Indications: The patient is a 51 year old man with a right small finger PIP joint injury status post fall with inability to extend the PIP joint. The risks and benefits of operative treatment, including but not limited to risk of damage to blood vessels, nerves, tendons, infection, recurrence, persistent pain or numbness, incomplete resolution of preoperative symptoms, or need for further surgery were discussed with the patient and they wished to proceed with surgery. Procedure: Once consent was obtained patient was brought back to the operating suite and placed in the operating table in a supine position. Perioperative antibiotics and anesthesia was administered by the anesthesia team. A tourniquet was applied to the proximal aspect of the left upper extremity and the limb was prepped and draped in a standard surgical fashion. The limb was elevated exsanguinated with Esmarch bandage and the tourniquet inflated to 250 mm of mercury for a total tourniquet time of 30 minutes. A longitudinally oriented lazy-S incision was made centralized over the dorsal aspect of the left small finger PIP joint. The incision was made through the skin the subcutaneous tissues using a 15. Blade. I carefully dissected down to the level of the extensor mechanism using tenotomy scissors. The patient was found to have an intrasubstance tendinous tear of the central slip of the extensor tendon to the PIP joint. The patient was also found to have an avulsion of the insertion of the radial collateral ligament with the distal aspect of the ligament lying superficial to the lateral band. Wound was irrigated with normal saline. The wound was debrided of some inflammatory tissue. I was then able to perform a primary repair of the central slip extensor tendon using 4-0 FiberWire and 4-0 Vicryl suture. I also then addressed the radial collateral ligament by repositioning the distal and deep to the lateral collateral ligament and in its anatomic position where it should be able to heal satisfactorily. I then placed a single 0.045 K-wire obliquely across the PIP joint which was held in extension to protect our repairs. Fluoroscopic images were taken to assure satisfactory reduction of the PIP joint and position of the K-wire. At this point the K-wire was bent cut short had pin caps applied. At this point the tourniquet was deflated and hemostasis obtained with a brief period of local pressure and bipolar electrocautery. The wound was copiously irrigated with normal saline. The skin edges were reapproximated with 5-0 nylon suture. An ulnar nerve block was performed by infiltrating about the ulnar nerve at the wrist with some 0.5% plain ropivacaine for postop pain control and a sterile dressing and an ulnar gutter splint were applied. The patient appears to have tolerated the procedure well and with no complications. All digits were well vascularized conclusion of the case.
== END 2022-05-16 12:58 | disposition home or self-care (01) ==
PROVIDERS: Visit Provider Orthopaedic Surgery
PROC: (CPT 26418; principal; 2022-05-16 09:00)
DX: S66.327A Laceration of extensor muscle, fascia and tendon of left little finger at wrist and hand level, initial encounter (principal); S56.418A Strain of extensor muscle, fascia and tendon of left little finger at forearm level, initial encounter; M20.022 Boutonniere deformity of left finger(s); M25.511 Pain in right shoulder; W10.9XXA Fall (on) (from) unspecified stairs and steps, initial encounter; Y93.9 Activity, unspecified; Y92.9 Unspecified place or not applicable; Y99.8 Other external cause status; E66.8 Other obesity; Z68.34 Body mass index [BMI] 34.0-34.9, adult; F33.0 Major depressive disorder, recurrent, mild; G47.33 Obstructive sleep apnea (adult) (pediatric); Z98.890 Other specified postprocedural states; Z79.899 Other long term (current) drug therapy
CPT/HCPCS: 26418; 26540; J0171; J0690; J1100; J2250; J2405; J2795; J3010

== ENCOUNTER 2022-06-15 09:35 | Outpatient (REF) | payer MEDICAID, SELFPAY ==
[2022-06-15 10:36] LABS: MANUAL DIFF FLAG NO
[2022-06-15 11:04] LABS: Basophils Percent Auto 0.9 % (0-2); Eosinophils Absolute Auto 0.1 X10*3/uL (0.0-0.4); Eosinophils Percent Auto 2.8 % (0-4); Hematocrit 43.1 % (42.0-52.0); Hemoglobin 13.6 g/dl (14.0-18.0); Imm Gran Abs Auto 0.02 X10*3/uL (0.00-0.03); Imm Gran Pct Auto 0.5 % (0.0-0.4); Lymphocytes Absolute Auto 1.8 X10*3/uL (1.2-4.9); Lymphocytes Percent Auto 41.5 % (20-40); Mean Corpuscular HGB Conc 31.6 g/dl (31.0-36.0); Mean Corpuscular Hemoglobin 25.2 pg (27.0-33.0); Mean Platelet Volume 11.7 fL (9.4-12.4); Monocytes Absolute Auto 0.4 X10*3/uL (0.1-1.2); Monocytes Percent Auto 9.7 % (2-11); Neutrophils Absolute Auto 1.9 x10*3/uL (2.0-8.3); Neutrophils Percent Auto 44.6 % (45-73); Platelet Count 211 X10*3/uL (160-400); Red Blood Count 5.39 X10*6/uL (4.60-5.80); Red Cell Distribution Width 15.7 % (11.0-16.0); White Blood Count 4.2 X10*3/uL (4.8-10.8)
[2022-06-15 11:34] LABS: Alanine Aminotransferase 48 U/L (0-40); Albumin Level 4.2 g/dL (3.5-5.0); Alkaline Phosphatase 120 U/L (39-117); Anion Gap 14 (12-20); Aspartate Amino Transferase 28 U/L (5-37); Bilirubin Total 0.5 mg/dL (0.0-1.0); Blood Urea Nitrogen 12 mg/dL (9-16); Calcium 9.3 mg/dL (8.4-10.2); Carbon Dioxide 27 mmol/L (22-29); Chloride 105 mmol/L (96-108); Cholesterol 266 mg/dL; Estimated Glomerular Filt Rate > 60; Glucose Fasting 133 mg/dL (60-99); HDL Cholesterol 47 mg/dL; LDL Cholesterol Calculated 169 mg/dl; Potassium 4.2 mmol/L (3.3-5.1); Sodium 142 mmol/L (135-145); Total Protein 7.2 g/dL (6.5-8.0); Triglycerides 252 mg/dL
[2022-06-15 11:47] LABS: Prostate Specific Antigen Scr 0.92 ng/mL (<0.05-4.0); Thyroid Stimulating Hormone 1.97 uIU/mL (0.32-4.0)
== END 2022-06-15 09:36 | disposition home or self-care (01) ==
LOC: HO.10HDL 09:35
PROVIDERS: Visit Provider Internal Medicine
DX: Z00.01 Encounter for general adult medical examination with abnormal findings (principal); Z13.31 Encounter for screening for depression; Z12.5 Encounter for screening for malignant neoplasm of prostate; E66.9 Obesity, unspecified; I10 Essential (primary) hypertension
CPT/HCPCS: 36415; 80053; 80061; 84153; 84443; 85025

== ENCOUNTER 2022-06-21 10:36 | Outpatient (REF) | payer MEDICAID, SELFPAY ==
--- NOTE | ~2022-06-21 | XR_ITS ---
EXAMINATION: XR HAND, LEFT CLINICAL INFORMATION: M79.642 - Pain in left hand COMPARISON: Fluoroscopic views left fifth finger 05/16/2022, radiographs left hand and finger 05/01/2022. TECHNIQUE: Left hand is imaged in 3 views. FINDINGS: There is a metallic orthopedic pin crossing the fifth finger PIP joint obliquely. There is normal alignment. Hardware is intact. No acute fracture or dislocation or destructive process. No periostitis. There are degenerative changes fifth finger DIP joint. Old corticated ossicle or old ununited avulsion again noted lateral base fifth proximal phalanx. XR/XR hand LT min 3V IMPRESSION: 1. Orthopedic pin crossing the fifth finger PIP joint. Hardware intact. 2. No acute bony abnormality. No destructive process.
== END 2022-06-21 10:37 | disposition home or self-care (01) ==
LOC: HO.HOSX 10:36
PROVIDERS: Visit Provider Orthopaedic Surgery
DX: M79.642 Pain in left hand (principal)
CPT/HCPCS: 73130

== ENCOUNTER → 2022-09-09 09:26 | Outpatient (BNVA) | payer MEDICAID, SELFPAY | PROVIDERS: PCP Internal Medicine; Visit Provider Orthopaedic Surgery | DX: Z47.89 Encounter for other orthopedic aftercare (principal) | CPT/HCPCS: 99212 ==

== ENCOUNTER 2022-10-27 07:24 | Outpatient (REF) | payer MEDICAID, SELFPAY ==
[2022-10-27 09:02] LABS: Estimated Average Glucose 134 mg/dL; Hemoglobin A1c % 6.3 %
[2022-10-27 09:56] LABS: Alanine Aminotransferase 41 U/L (0-40); Alkaline Phosphatase 109 U/L (39-117); Anion Gap 12 (12-20); Aspartate Amino Transferase 33 U/L (5-37); Bilirubin Total 0.8 mg/dL (0.0-1.0); Blood Urea Nitrogen 22 mg/dL (9-16); Calcium 8.8 mg/dL (8.4-10.2); Carbon Dioxide 26 mmol/L (22-29); Chloride 107 mmol/L (96-108); Cholesterol 235 mg/dL; Estimated Glomerular Filt Rate > 60; Glucose Random 118 mg/dL (60-115); HDL Cholesterol 48 mg/dL; LDL Cholesterol Calculated 164 mg/dl; Potassium 4.4 mmol/L (3.3-5.1); Sodium 141 mmol/L (135-145); Total Protein 7.1 g/dL (6.5-8.0); Triglycerides 118 mg/dL
[2022-10-27 10:57] LABS: Creatinine Urine 192.81 mg/dL; Microalbum/Creatinine Ratio Ur 5.1 ug/mg cr
== END 2022-10-27 07:25 | disposition home or self-care (01) ==
LOC: HO.LAB 07:24
PROVIDERS: PCP Internal Medicine; Visit Provider Internal Medicine
DX: E78.00 Pure hypercholesterolemia, unspecified (principal); I10 Essential (primary) hypertension; R73.01 Impaired fasting glucose; R74.01 Elevation of levels of liver transaminase levels
CPT/HCPCS: 36415; 80053; 80061; 82043; 83036

== ENCOUNTER 2022-11-23 11:55 | Day surgery (SDC) | payer MEDICAID, SELFPAY ==
--- NOTE | 2022-11-22 12:02 | HO.ANESPROP2 ---
Documented by User: Carlyn Bray NP 11/22/22 12:02 HPI - Anesthesia Eval Consult details Narrative: 51yo M for Colonoscopy PMFSH Active Problems Active Problems: All Active Problems (Updated 05/11/22 @ 13:17 by Georgina Cohen MD) Status post right rotator cuff repair (Acute) Status post tendon repair (Acute) Traumatic rupture of extensor tendon of finger (Acute) Central slip extensor tendon injury (boutonniere) (Acute) Physical exam (Acute) Right elbow pain (Acute) Right shoulder pain (Acute) Dysfunction of right rotator cuff (Acute) Right rotator cuff tear (Acute) Erectile dysfunction (Acute) Testosterone deficiency (Acute) Colon polyps (Acute) EDISON (generalized anxiety disorder) (Acute) Mild recurrent major depression (Acute) Class 1 obesity with body mass index (BMI) of 34.0 to 34.9 in adult (Acute) Past Medical History Medical History (Updated 11/22/22 @ 12:02 by Carlyn Bray NP) Class 1 obesity with body mass index (BMI) of 34.0 to 34.9 in adult Colon polyps Erectile dysfunction EDISON (generalized anxiety disorder) HLD (hyperlipidemia) Mild recurrent major depression Obstructive sleep apnea Testosterone deficiency Family History Family History Mother Alzheimer disease Father No problems noted. Brother Liver cancer Substance use disorder Family history of problems with anesthesia: No Surgical History Surgical History History of back surgery History of elbow surgery History of repair of rotator cuff History of Problems with Anesthesia: No Social History Social History Housing: House Alcohol intake: never Patient Tobacco Use Status: Never used Tobacco e-Cigarette/Vaping Use: Never Used Second Hand Smoke Exposure: No Use of substances other than those prescribed or required for medical reasons: No Are you DNR?: No Advance Directives: No Advance Directives Information Provided: Yes service: No Current occupational status: unemployed 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 Current occupational exposures/hazards: No Cognitive needs: No Hearing needs: No Vision needs: No Meds Allergies Allergy/AdvReac Type Severity Reaction Status Date / Time No Known Allergies Allergy Verified 06/21/22 10:39 Home Medications Medication Instructions Recorded Confirmed Last Taken Type atorvastatin 40 mg tablet 40 mg PO BEDTIME 11/23/22 11/23/22 Unknown History Exam Exam Date and Time: November 22, 2022 1202 Assessment and Plan Final Anesthetic Review Family History of Problems with Anesthesia: No History of Problems with Anesthesia: No Documented by User: Cheryl Waggoner MD 11/23/22 13:26 [facility] Past Medical History Medical History (Updated 11/22/22 @ 12:02 by Carlyn Bray NP) Class 1 obesity with body mass index (BMI) of 34.0 to 34.9 in adult Colon polyps Erectile dysfunction EDISON (generalized anxiety disorder) HLD (hyperlipidemia) Mild recurrent major depression Obstructive sleep apnea Testosterone deficiency Family History Family History Mother Alzheimer disease Father No problems noted. 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 Current occupational exposures/hazards: No Cognitive needs: No Hearing needs: No Vision needs: No Meds Allergies Allergy/AdvReac Type Severity Reaction Status Date / Time No Known Allergies Allergy Verified 06/21/22 10:39 Home Medications Medication Instructions Recorded Confirmed Last Taken Type atorvastatin 40 mg tablet 40 mg PO BEDTIME 11/23/22 11/23/22 Unknown History Exam Airway Mallampati Class: II TM Dist: >3cm Neck ROM: Full Heart: rr Lungs: cta Assessment and Plan Assessment Anesthesia Assessment: Anesthesia Plan Discussed and Chart Reviewed Final Anesthetic Review ASA Class: II Final Preanesthetic Review: No Changes in Pt Med Stat, Meds/Allgs Chart Reviewed, Consent Obtained/Reviewed and Anes Risks/Benef Reviewed Patient Risk: Low Procedure Risk: Low Anesthetic Plan Anesthetic Plan: MAC: Disposition: Standard PACU
[2022-11-23 12:19] VITALS: BP 145/89; PULSE 84; RESP 18; TEMP 36.8; O2SAT 98; BMI 33.5
[2022-11-23] MEDS: Lactated Ringers 1,000 ML 100 ML IVCONT (12:37)
--- NOTE | 2022-11-23 13:06 | MHC.SHP ---
Pre-Procedural Eval Section A Date of Service: 11/23/22 The patient is an INPATIENT: No Changes since office visit: No Cold of Flu in the past 2 weeks, No New Medical Problems, No Changes in Medication and No Patient answered all questions The History & Physical has been completed within 30 days and I have reviewed it.: Yes Section B Chief Complaint: Screening Allergies: Allergies Allergy/AdvReac Type Severity Reaction Status Date / Time No Known Allergies Allergy Verified 06/21/22 10:39 Plan I have reviewed the history and physical and performed a pertinent physical examination on my patient. No changes have occurred unless specified. Time Spent With Patient Time: Total time managing care of this patient today ____ minutes.
--- NOTE | 2022-11-23 13:33 | P.BOP_ITS ---
Brief Operative Note Date of Service: 11/23/22 Pre-op diagnosis: screening Post-op diagnosis: same Procedure: colonoscopy Surgeon: Mike Rocha Anesthesia: MAC Was an Room Service Waiter/Waitress used for this Procedure?: No Estimated blood loss (mL): 0 Pathology: none sent Condition: stable Disposition: PACU
[2022-11-23 13:39] VITALS: BP 107/65; PULSE 80; RESP 16; TEMP 37; O2SAT 97
[2022-11-23 13:54] VITALS: BP 123/79; PULSE 78; RESP 16; O2SAT 97
[2022-11-23 14:17] VITALS: BP 127/77; PULSE 71; RESP 18; TEMP 37; O2SAT 97
--- NOTE | 2022-11-23 23:37 | OP_ITS ---
DATE OF SERVICE: 11/23/2022 SURGEON: Mike Rocha MD INDICATIONS: Colon cancer screening. PREOPERATIVE DIAGNOSIS: POSTOPERATIVE DIAGNOSIS: PROCEDURE PERFORMED: Colonoscopy to the terminal ileum. ESTIMATED BLOOD LOSS: COMPLICATIONS: ANESTHESIA: Monitored anesthesia care. ASSISTANTS: SPECIMENS: DESCRIPTION OF PROCEDURE: A history and physical was performed. The risks and benefits of the procedure were explained to the patient and informed consent was obtained. The patient was placed in the left lateral decubitus position. A digital rectal exam was performed and was found to be normal. The Olympus pediatric video colonoscope was introduced into the rectum and advanced to the cecum without difficulty. The cecum was identified by transillumination, palpation, and identification of ileocecal valve. Examination was performed. The scope was removed. He tolerated the procedure well and was taken to recovery in stable condition. FINDINGS: The terminal ileum was examined and appeared normal. The visualized colonic mucosa was normal. The quality of the prep was good. No polyps were identified. There was very scattered mild diverticulosis. Retroflexed examination showed some small internal hemorrhoids. IMPRESSION: Normal screening colonoscopy. RECOMMENDATION: 1. Follow up as needed. 2. Repeat colonoscopy is recommended in 10 years for average risk individuals. MD SUSI Neely/ROCHELLE / [id number]
== END 2022-11-23 14:47 | disposition home or self-care (01) ==
PROVIDERS: PCP Internal Medicine; Visit Provider Internal Medicine Gastroenterology
PROC: 0DJD8ZZ Inspection of Lower Intestinal Tract, Via Natural or Artificial Opening Endoscopic (ICD-10-PCS; CPT 45378; principal; 2022-11-23 13:00)
DX: Z12.11 Encounter for screening for malignant neoplasm of colon (principal); Z86.010 Personal history of colon polyps; K57.30 Diverticulosis of large intestine without perforation or abscess without bleeding; K64.8 Other hemorrhoids; E78.00 Pure hypercholesterolemia, unspecified; E66.9 Obesity, unspecified; Z68.33 Body mass index [BMI] 33.0-33.9, adult; Z79.899 Other long term (current) drug therapy
CPT/HCPCS: 45378

== ENCOUNTER 2023-02-20 09:16 | Outpatient (REF) | payer MEDICAID, SELFPAY ==
[2023-02-20 10:14] LABS: Estimated Average Glucose 120 mg/dL; Hemoglobin A1C 151.0606 umol/L; Hemoglobin A1c % 5.8 %
[2023-02-20 11:54] LABS: Alanine Aminotransferase 30 U/L (0-40); Albumin Level 4.2 g/dL (3.5-5.0); Alkaline Phosphatase 86 U/L (39-117); Anion Gap 11 (12-20); Aspartate Amino Transferase 31 U/L (5-37); Bilirubin Total 0.7 mg/dL (0.0-1.0); Blood Urea Nitrogen 20 mg/dL (9-16); Calcium 9.2 mg/dL (8.4-10.2); Carbon Dioxide 25 mmol/L (22-29); Chloride 108 mmol/L (96-108); Cholesterol 247 mg/dL; Estimated Glomerular Filt Rate > 60; Glucose Random 111 mg/dL (60-115); HDL Cholesterol 53 mg/dL; LDL Cholesterol Calculated 163 mg/dl; Potassium 4.3 mmol/L (3.3-5.1); Sodium 140 mmol/L (135-145); Total Protein 7.4 g/dL (6.5-8.0); Triglycerides 157 mg/dL
== END 2023-02-20 09:17 | disposition home or self-care (01) ==
LOC: HO.LAB 09:16
PROVIDERS: PCP Internal Medicine; Visit Provider Internal Medicine
DX: E78.00 Pure hypercholesterolemia, unspecified (principal); I10 Essential (primary) hypertension; R73.01 Impaired fasting glucose; R74.01 Elevation of levels of liver transaminase levels
CPT/HCPCS: 36415; 80053; 80061; 83036